=== PATIENT | male | born 1970 | race Caucasian/White ===

== ENCOUNTER 2020-05-21 15:59 | Emergency (ER) | payer OTHER | END 2020-05-21 16:47 | disposition left against medical advice (07) | LOC: ER1 15:59 | DX: U07.1 COVID-19 (principal); I10 Essential (primary) hypertension; Z79.899 Other long term (current) drug therapy; Z53.20 Procedure and treatment not carried out because of patient's decision for unspecified reasons | CPT/HCPCS: 99284 ==